=== PATIENT | female | born 1945 | race Caucasian/White ===

== ENCOUNTER 2017-01-05 11:34 | Inpatient (IN) | payer OTHER ==
[~2017-01-05] VITALS: Ht 162.6 cm; Wt 99.8 kg
[2017-01-05] MEDS ORDERED: IV NORMAL SALINE 1000ML BAG 1,000 ML IV SCH (12:12)
[2017-01-05] MEDS ORDERED: 0.9 % SODIUM CHLORIDE 10 ML DISP.SYRIN. IV ONE (12:15)
[2017-01-05] MEDS ORDERED: IPRATRPIUM/ALBUTEROL 0.5/2.5MG 3 ML NEBU. NEB ONE (12:15)
[2017-01-05] MEDS ORDERED: fentaNYL PF VIAL 100 MCG/2 ML VIAL IV PRN ×2 (12:15→16:00)
[2017-01-05] MEDS ORDERED: methylPREDNISolone SOD SUCC PF 125 MG/2 ML VIAL. IV ONE (12:15)
--- NOTE | 2017-01-05 12:23 | PHYS DOC ---
Past Medical History Past Medical History: COPD, High Cholesterol, Hypertension Additional Past Medical Histor: S2 colitis Past Surgical History: Cholecystectomy Additional Past Surgical Histo: prior oophorectomy secondary to ovarian cysts Smoking: Cigarettes, Greater than 1 pack/day Alcohol Use: None Drug Use: None Adult General Chief Complaint Chief Complaint: ALTERED MENTAL STATUS HPI HPI This is a pleasant 71-year-old female endstage COPD with history of hypertension hyperlipidemia who presents with altered mental status ongoing for last 3 days. at the bedside is noted that she had increased altered mental status with confusion periodically during the last several days and this morning he had a hard time arousing her from sleep. She denies any changes in the medications, denies that she's had any chest pain or increased need for her oxygen daily. Her present oxygen uses between 5 and 6 L daily depending on activity and sleep. She does not use a CPAP machine of our BiPAP and she still smoking. She denies any chest pain but has continuous shortness of breath with even minor activity. She denies any fevers, productive cough, runny nose congestion or other symptoms. She does have some crampy abdominal pain in all abdominal case. She denies any nausea, vomiting, diarrhea or UTI symptoms. Pain is worse with direct pressure not associate with food or position. Patient denies any radiation of pain to the back. Patient denies any fevers sick contacts or recent antibiotics. At this point patient is awake and talkative but several fairly confused even during history taking. She denies any weight gain denies any rashes. Review of Systems Review of Systems Constitutional: Complains of fatigue and increased sleepiness Eyes: Denies change in visual acuity, redness, or eye pain [] HENT: Denies nasal congestion or sore throat [] Respiratory: As on a nonproductive cough, also chronic shortness of breath on exertion.] Cardiovascular: No additional information not addressed in HPI [] GI: Planes of diffuse abdominal pain with no nausea no vomiting or diarrhea. : Denies dysuria or hematuria [] Musculoskeletal: Denies back pain or joint pain [] Integument: Denies rash or skin lesions [] Neurologic: Planes being generally weak and confused. Patient is awake alert and oriented [address] Endocrine: Denies polyuria or polydipsia [] Current Medications Current Medications Current Medications Medications (Trade) Dose Ordered Sig/Kevin Start Time Stop Time Status Last Admin Dose Admin Albuterol/ Ipratropium (Duoneb) 3 ml 1X ONCE 01/05/17 12:15 01/05/17 12:19 DC 01/05/17 13:09 3 ML Fentanyl Citrate (Fentanyl 2ml Vial) 50 mcg PRN Q2HR PRN 01/05/17 16:00 01/06/17 15:59 Levofloxacin/ Dextrose 150 ml @ 100 mls/hr 1X ONCE 01/05/17 16:00 01/05/17 17:29 Methylprednisolone Sodium Succinate (SOLU-Medrol 125MG VIAL) 125 mg 1X ONCE 01/05/17 12:15 01/05/17 12:19 DC 01/05/17 13:10 125 MG Ondansetron HCl (Zofran) 4 mg PRN Q8HRS PRN 01/05/17 16:00 01/06/17 15:59 Sodium Chloride 1,000 ml @ 1,000 mls/hr Q1H 01/05/17 12:12 01/05/17 13:11 DC 01/05/17 13:10 1,000 MLS/HR Sodium Chloride (Normal Saline Flush) 10 ml 1X ONCE 01/05/17 12:15 01/05/17 12:19 DC 01/05/17 13:10 10 ML Allergies Allergies Allergies Coded Allergies Type Severity Reaction Last Updated Verified No Known Drug Allergies 01/05/17 No Physical Exam Physical Exam Constitutional: This is a morbidly obese patient was obvious and respiratory distress speaking 5-6 word sentences no obvious retractions. Patient has dry skin dry mucous membranes and obviously is dehydrated. HENT: Normocephalic, atraumatic, bilateral external ears normal, dry mucous membranes Eyes: PERRLA, EOMI, conjunctiva normal, no discharge. [] Neck: Normal range of motion, no tenderness, supple, no stridor. [] Cardiovascular:Heart rate regular rhythm, no murmur [] Lungs & Thorax: Decreased breath sounds bilaterally decreased movement of air diffuse wheezing in all lung case with no retractions. Abdomen: Bowel sounds normal, soft, patient is tenderness in all the quadrants. No guarding rebound or organomegaly no Peralta's or McBurney's point tenderness palpation Skin: Warm, dry, no erythema, dry skin +2 capillary refill +2 peripheral pulses skin is warm and dry Back: No tenderness, no CVA tenderness. [] Extremities: No tenderness, no cyanosis, no clubbing, ROM intact, no edema. [] Neurologic: Alert and oriented X 2, normal motor function, normal sensory function, no focal deficits noted. Patient is mildly confused but easily focused. [] Psychologic: Affect normal, judgement normal, mood normal. [] Current Patient Data Vital Signs Vital Signs Date Time Temp Pulse Resp B/P (MAP) Pulse Ox O2 Delivery O2 Flow Rate FiO2 01/05/17 14:10 78 20 178/84 (115) 98 Nasal Cannula 6.0 01/05/17 11:50 98.4 98.4 Lab Values Laboratory Tests Test 01/05/17 11:50 01/05/17 12:55 01/05/17 13:39 01/05/17 15:10 White Blood Count 12.8 x10^3/uL (4.0-11.0) H Red Blood Count 3.58 x10^6/uL (3.50-5.40) Hemoglobin 11.2 g/dL (12.0-15.5) L Hematocrit 36.4 % (36.0-47.0) Mean Corpuscular Volume 102 fL (79-100) H Mean Corpuscular Hemoglobin 31 pg (25-35) Mean Corpuscular Hemoglobin Concent 31 g/dL (31-37) Red Cell Distribution Width 13.9 % (11.5-14.5) Platelet Count 199 x10^3/uL (140-400) Neutrophils (%) (Auto) 95 % (31-73) H Lymphocytes (%) (Auto) 3 % (24-48) L Monocytes (%) (Auto) 2 % (0-9) Eosinophils (%) (Auto) 0 % (0-3) Basophils (%) (Auto) 0 % (0-3) Neutrophils # (Auto) 12.1 x10^3uL (1.8-7.7) H Lymphocytes # (Auto) 0.4 x10^3/uL (1.0-4.8) L Monocytes # (Auto) 0.3 x10^3/uL (0.0-1.1) Eosinophils # (Auto) 0.0 x10^3/uL (0.0-0.7) Basophils # (Auto) 0.0 x10^3/uL (0.0-0.2) Segmented Neutrophils % 91 % (35-66) H Band Neutrophils % 4 % (0-9) Lymphocytes % 2 % (24-48) L Monocytes % 3 % (0-10) Platelet Estimate Adequate (ADEQUATE) Polychromasia Slight Basophilic Stippling Present Macrocytosis Slight Lactic Acid Level 0.9 mmol/L (0.4-2.0) Sodium Level 146 mmol/L (136-145) H Potassium Level 5.0 mmol/L (3.5-5.1) Chloride Level 110 mmol/L (98-107) H Carbon Dioxide Level 35 mmol/L (21-32) H Anion Gap 1 (6-14) L Blood Urea Nitrogen 27 mg/dL (7-20) H Creatinine 1.3 mg/dL (0.6-1.0) H Estimated GFR (Cockcroft-Gault) 40.5 BUN/Creatinine Ratio 21 (6-20) H Glucose Level 146 mg/dL (70-99) H Calcium Level 8.5 mg/dL (8.5-10.1) Total Bilirubin 0.2 mg/dL (0.2-1.0) Aspartate Amino Transferase (AST) 11 U/L (15-37) L Alanine Aminotransferase (ALT) 15 U/L (14-59) Alkaline Phosphatase 98 U/L (46-116) Creatine Kinase 24 U/L (26-192) L Creatine Kinase MB (Mass) 0.6 ng/mL (0.0-3.6) Creatine Kinase MB Relative Index % (0-4) Troponin I Quantitative < 0.017 ng/mL (0.000-0.055) RJ-Wqc-V-Type Natriuretic Peptide 812 pg/mL (0-124) H Total Protein 6.2 g/dL (6.4-8.2) L Albumin 3.1 g/dL (3.4-5.0) L Albumin/Globulin Ratio 1.0 (1.0-1.7) Lipase 79 U/L (73-393) Urine Collection Type U cath Urine Color Yellow Urine Clarity Cloudy Urine pH 6.0 Urine Specific [place] 1.015 Urine Protein 30 mg/dL (NEG-TRACE) Urine Glucose (UA) Negative mg/dL (NEG) Urine Ketones (Stick) Negative mg/dL (NEG) Urine Blood Large (NEG) Urine Nitrite Positive (NEG) Urine Bilirubin Negative (NEG) Urine Urobilinogen Dipstick 0.2 mg/dL (0.2 mg/dL) Urine Leukocyte Esterase Small (NEG) Urine RBC >40 /HPF (0-2) Urine WBC 11-20 /HPF (0-4) Urine Bacteria Many /HPF (0-FEW) O2 Saturation 95 % (92-99) Arterial Blood pH 7.21 (7.35-7.45) L Arterial Blood pCO2 at Patient Temp 77 mmHg (35-46) *H Arterial Blood pO2 at Patient Temp 84 mmHg (65-108) Arterial Blood HCO3 30 mmol/L (21-28) H Arterial Blood Base Excess 0 mmol/L (-3-3) Oxyhemoglobin 93.8 % Methemoglobin 0.5 % (0.0-1.9) Carbon Monoxide, Quantitative 1.0 % (0.0-1.9) FiO2 44.0 Laboratory Tests 01/05/17 11:50 Laboratory Tests 01/05/17 12:55 EKG EKG [] Radiology/Procedures Radiology/Procedures [] IMAGING REPORT Signed PATIENT: ARDEN SMITH ACCOUNT: [id number] : 1945 LOCATION: ER AGE: 71 SEX: F EXAM STATUS: REG ER ORD. PHYSICIAN: MINE RICE MD REASON: ab pain diffuse PROCEDURE: CT ABDOMEN PELVIS WO CONTRAST Indication diffuse abdominal pain. Axial images through the abdomen and pelvis were obtained. No similar imaging is available for comparison purposes. The study is limited. No IV or gastrointestinal contrast was administered. The lung bases are clear. Liver and spleen appear unremarkable. Clips are noted in the gallbladder fossa. No pancreatic abnormality is seen. There is a left adrenal nodule measuring approximately 1.5 cm in greatest dimension. Hounsfield unit numbers are -10. The finding is compatible with a benign adenoma. The right adrenal gland appears normal. No definite finding is seen associated with the kidneys. Some mild stranding is noted surrounding both kidneys which is nonspecific. Acute finding in the abdomen is not seen. In the pelvis diverticula are seen scattered throughout the large bowel. These are most numerous in the sigmoid colon. Active inflammation is not seen. Acute finding in the pelvis is not apparent. IMPRESSION: No acute finding seen in the abdomen or pelvis. Benign small left adrenal adenoma Moderately large bowel diverticulosis. PQRS Compliance Statement: One or more of the following individualized dose reduction techniques were utilized for this examination: 1. Automated exposure control 2. Adjustment of the mA and/or kV according to patient size 3. Use of iterative reconstruction technique DICTATED and SIGNED BY: ANITA HENDRICKS MD DATE: 01/05/17 1318 CC: MINE RICE MD; RAINA SIMPSON Jr, MD ~ IMAGING REPORT Signed PATIENT: ARDEN SMITH ACCOUNT: [id number] : 1945 LOCATION: ER AGE: 71 SEX: F EXAM STATUS: REG ER ORD. PHYSICIAN: MINE RICE MD REASON: cough sob PROCEDURE: PORTABLE CHEST 1V Exam: AP portable chest. History: Cough and shortness of breath beginning today. Comparison: 07/20/2012. Findings: The heart and mediastinal structures are within normal limits for size. Lungs are without infiltrate. No pneumothorax or pleural effusion is appreciated. There is mild accentuation of interstitial markings which could represent fibrotic change. Bilateral shoulder degeneration is seen. Impression: 1. No acute cardiopulmonary process. DICTATED and SIGNED BY: KE LOPEZ MD DATE: 01/05/17 1229 CC: MINE RICE MD; RAINA SIMPSON Jr, MD ~ IMAGING REPORT Signed PATIENT: ARDEN SMITH ACCOUNT: [id number] : 1945 LOCATION: ER AGE: 71 SEX: F EXAM STATUS: REG ER ORD. PHYSICIAN: MINE RICE MD REASON: ams confusion PROCEDURE: CT HEAD WO CONTRAST CT head without contrast History: Altered mental status, confusion. Comparison: None. Procedure: Axial images are obtained of the head from the skull base through the vertex without IV contrast. One or more of the following individualized dose reduction techniques were utilized for the study: Automated exposure control Adjustment of mA and/or kV according to patient's size Use of iterative reconstruction technique. Findings: The ventricles and sulci are normal for the patient's age. No mass-effect, intracranial mass, midline shift, hemorrhage or obvious acute infarction is identified. Basilar cisterns are patent. Patchy, nonspecific white matter low attenuation is seen, probably from chronic microvascular ischemic disease. Bone windows demonstrate no significant calvarial abnormality. The visualized paranasal sinuses appear clear. Impression: 1. No acute intracranial process. Please note that CT can be relatively insensitive to acute ischemic infarction for up to 24 hours after symptom onset. 2. Nonspecific white matter changes, probably from chronic microvascular ischemic disease. DICTATED and SIGNED BY: KE LOPEZ MD DATE: 01/05/17 6257 CC: MINE RICE MD; RAINA SIMPSON Jr, MD ~ Course & Med Decision Making Course & Med Decision Making Pertinent Labs and Imaging studies reviewed. (See chart for details) Patient initially presented with altered mental status for last 3-4 days according to the family they were concerned about possible infection versus stroke. Her drug scale work shows essentially 0 at baseline noted that she was in mild COPD exacerbation with decreased breath sounds rock at the bases without a focal cranial chest x-ray. Patient was given Solu-Medrol 125 mg IV as well as no treatment was 3 doses albuterol and Atrovent of Levaquin antibiotics after blood cultures were completed. Patient was then completed the cardiac workup to include EKG and troponin which are both unremarkable. Patient's CT abdomen and pelvis was unremarkable for appendicitis diverticulitis or small bowel inflammation or infection. Although she had a complaint of abdominal pain there is no evidence of kidney stones or small bowel obstruction. urinalysis that was trace white blood cells nitrates and bacteria consistent with a likely bacterial infection of the urine. Patient's CT of her head was unremarkable except for mild atrophy without focal neurologic neurologic infarct or mass. At this point patient feels markedly better but almost os is not been explained. She'll be admitted to the hospital for Altered mental status, COPD exacerbation, mild hypoxia and a urinary tract infection.. Patient's been admitted to hospitalist service to [facility] []Differential diagnosis: Acute myocardial ischemia, heart failure, cardiac tamponade, bronchospasm, pulmonary embolism, pneumothorax, pulmonary infection i.e. bronchitis or pneumonia, upper airway obstruction, anaphylaxis, aspiration , psychogenic, pulmonary contusion, toxidrome, pneumomediastinum, noncardiogenic pulmonary edema or ARDS, COPD, tuberculosis, cystic fibrosis, asthma, high altitude pulmonary edema, valvular dysfunction, cardiac dysrhythmia , stroke, neuromuscular diseases like myasthenia gravis gravis, ALS, Guillain- Horn syndrome, metabolic acidosis to include diabetic ketoacidosis, sepsis, and obstructive disorders like massive obesity considers part of the differential. Dragon Disclaimer Dragon Disclaimer This electronic medical record was generated, in whole or in part, using a voice recognition dictation system. Departure Departure Impression: Primary Impression: Dyspnea Additional Impressions: COPD exacerbation Mental status alteration Hypertension Urinary tract infection Disposition: 09 ADMITTED INPATIENT Admitting Physician: Trudy Huddleston Condition: GOOD Referrals: RAINA SIMPSON Jr, MD (PCP) Problem Qualifiers MINE RICE MD January 05, 2017 12:23
[2017-01-05 12:25] LABS: BASO % 0 % (0-3); EOS % 0 % (0-3); HEMATOCRIT 36.4 % (36.0-47.0); HEMOGLOBIN 11.2 g/dL (12.0-15.5); LYMPH # 0.4 x10^3/uL (1.0-4.8); LYMPH % 3 % (24-48); MEAN CORPUSCULAR HEMOGLOBIN 31 pg (25-35); MEAN CORPUSCULAR HGB CONC 31 g/dL (31-37); MEAN CORPUSCULAR VOLUME 102 fL (79-100); MONO % 2 % (0-9); NEUT % 95 % (31-73); PLATELET COUNT 199 x10^3/uL (140-400); RED BLOOD COUNT 3.58 x10^6/uL (3.50-5.40); RED CELL DISTRIBUTION WIDTH 13.9 % (11.5-14.5); WHITE BLOOD COUNT 12.8 x10^3/uL (4.0-11.0)
--- NOTE | 2017-01-05 12:33 | RAD ---
Exam: AP portable chest. History: Cough and shortness of breath beginning today. Comparison: 07/20/2012. Findings: The heart and mediastinal structures are within normal limits for size. Lungs are without infiltrate. No pneumothorax or pleural effusion is appreciated. There is mild accentuation of interstitial markings which could represent fibrotic change. Bilateral shoulder degeneration is seen. Impression: 1. No acute cardiopulmonary process.
[2017-01-05 13:20] LABS: ALBUMIN 3.1 g/dL (3.4-5.0); CALCIUM 8.5 mg/dL (8.5-10.1); CREATININE 1.3 mg/dL (0.6-1.0); GFR 40.5; TOTAL BILIRUBIN 0.2 mg/dL (0.2-1.0); TOTAL PROTEIN 6.2 g/dL (6.4-8.2)
[2017-01-05 13:31] LABS: CKMB MASS 0.6 ng/mL (0.0-3.6); CREATINE KINASE 24 U/L (26-192)
--- NOTE | 2017-01-05 13:32 | RAD ---
Indication diffuse abdominal pain. Axial images through the abdomen and pelvis were obtained. No similar imaging is available for comparison purposes. The study is limited. No IV or gastrointestinal contrast was administered. The lung bases are clear. Liver and spleen appear unremarkable. Clips are noted in the gallbladder fossa. No pancreatic abnormality is seen. There is a left adrenal nodule measuring approximately 1.5 cm in greatest dimension. Hounsfield unit numbers are -10. The finding is compatible with a benign adenoma. The right adrenal gland appears normal. No definite finding is seen associated with the kidneys. Some mild stranding is noted surrounding both kidneys which is nonspecific. Acute finding in the abdomen is not seen. In the pelvis diverticula are seen scattered throughout the large bowel. These are most numerous in the sigmoid colon. Active inflammation is not seen. Acute finding in the pelvis is not apparent. IMPRESSION: No acute finding seen in the abdomen or pelvis. Benign small left adrenal adenoma Moderately large bowel diverticulosis. PQRS Compliance Statement: One or more of the following individualized dose reduction techniques were utilized for this examination: 1. Automated exposure control 2. Adjustment of the mA and/or kV according to patient size 3. Use of iterative reconstruction technique
[2017-01-05 13:49] LABS: BILIRUBIN,URINE NEGATIVE (NEG); GLUCOSE,URINE NEGATIVE (NEG); NITRITE,URINE POSITIVE (NEG); PROTEIN,URINE 30 mg/dL (NEG-TRACE); UROBILINOGEN,URINE 0.2 mg/dL (0.2 mg/dL)
--- NOTE | 2017-01-05 13:55 | EKG ---
[facility] [address] [place] [address] Test Date: 2017-01-05 Test Time: 11:44:12 Pat Name: ARDEN SMITH Department: Room: Gender: F [employer]: : 1945 Requested By: MINE RICE Order Number: [id number] Reading MD: Rodolfo Elizabeth Measurements Intervals [place] Rate: 78 P: 90 IA: 154 QRS: 95 QRSD: 86 T: 72 QT: 350 QTc: 402 Interpretive Statements SINUS RHYTHM ATRIAL PREMATURE COMPLEX(ES) Electronically Signed On 01-09-2017 12:48:49 CDT by Rodolfo Elizabeth
[2017-01-05 13:59] LABS: BACTERIA,URINE MANY /HPF (0-FEW); RBC,URINE >40 /HPF (0-2)
--- NOTE | 2017-01-05 14:35 | ACF ---
Admit Criteria Forms Admit Criteria Forms Admit Criteria Forms MENTAL STATUS CHANGE Clinical Indications for Inpatient Care (Place 'X' for any and all applicable criteria): Ongoing inpatient care may be needed for 1 or more of the following(1)(2)(3)(5)( 6): [ ]I. Suspected serious etiology (eg, medical disorder, MICROBIOLOGY LAB ASSISTANT event) of altered mental status [ ]II. Danger to self or others not manageable at lower level of care [ ]III. Grave disability (eg, inability to perform self care necessary at lower level of care) [ ]IV. Agitation or inappropriate behavior interfering with care for primary condition (eg, attempting to discontinue lines or drains prematurely, unable to cooperate with respiratory care) [ ]V. Delirium [A] [D][E] as described by 1 or more of the following(26): [ ]a) Delirium due to alcohol or sedative [F] withdrawal [ ]b) Delirium of uncertain etiology that has not responded to appropriate empiric treatment [ ]c) Delirium that prevents performance of a life-sustaining function (eg, feeding or hydrating oneself) [X]. General contraindications and/or Inappropriate clinical situations for Observational Care in patients with Mental Status Change, when ANY ONE of the following is required: [X]a) Prediction of prolongation of LOS based on ANY ONE of the following may be considered as a contraindication for observational care 2, 3, 4, 5, 6, 7, 8, 9, 10, 11 [X]i) Age > 65 yrs. [X]ii) Patient arriving by ambulance [ ]iii) Patient with high acuity [ ]iv) Patient requiring vital sign monitoring [ ]v) Patient on IV medication [ ]b) Systolic blood pressures greater than or equal to 180mmHg 3, 12 [ ]c) Patient with altered mental status including delirium and other alteration of consciousness, (3) [ ]d) Patient whose discharge disposition will be to a penitentiary home or rehabilitation home should not be managed in Emergency Department Observation Unit. CMS rule requires 3 days hospital stay before such placement.3,13 [ ]e) Patient with failure to thrive due to broad array of etiologies 3,16,17 [ ]f) Inability to ambulate 3,14 Extended stay beyond goal length of stay for the primary condition may be needed until ALL of the following are present(3)(5): [ ]a) Underlying medical etiology of mental status change is absent, or has been established and adequately treated [ ]b) Danger to self or others is absent or manageable at lower level of care. [ ]c) Behavior crisis management, including physical or chemical restraints, is not required or available at lower level of car [ ]d) Substance or alcohol withdrawal is absent or manageable at lower level of care. [ ]e) Behavioral symptoms (eg, agitation, somnolence, inappropriate behavior) are absent, or are manageable at lower level of care. The original [facility] Eventable content created by [facility] has been revised. The portions of the content which have been revised are identified through the use of italic text or in bold, and [facility] has neither reviewed nor approved the modified material. All other unmodified content is copyright [facility]. Please see references footnoted in the original [facility] [employer] edition 2016 MYRIAM ONEIL January 05, 2017 14:35
[2017-01-05 14:59] LABS: PLT ESTIMATE ADEQUATE (ADEQUATE)
[2017-01-05 15:01] LABS: POLYCHROMASIA SLIGHT
--- NOTE | 2017-01-05 15:01 | RAD ---
CT head without contrast History: Altered mental status, confusion. Comparison: None. Procedure: Axial images are obtained of the head from the skull base through the vertex without IV contrast. One or more of the following individualized dose reduction techniques were utilized for the study: Automated exposure control Adjustment of mA and/or kV according to patient's size Use of iterative reconstruction technique. Findings: The ventricles and sulci are normal for the patient's age. No mass-effect, intracranial mass, midline shift, hemorrhage or obvious acute infarction is identified. Basilar cisterns are patent. Patchy, nonspecific white matter low attenuation is seen, probably from chronic microvascular ischemic disease. Bone windows demonstrate no significant calvarial abnormality. The visualized paranasal sinuses appear clear. Impression: 1. No acute intracranial process. Please note that CT can be relatively insensitive to acute ischemic infarction for up to 24 hours after symptom onset. 2. Nonspecific white matter changes, probably from chronic microvascular ischemic disease.
[2017-01-05 15:15] LABS: BASE EXCESS COOX 0 mmol/L (-3-3); HCO3 COOX 30 mmol/L (21-28); METHEMOGLOBIN 0.5 % (0.0-1.9); OXYHEMOGLOBIN 93.8 %; PH COOX 7.21 (7.35-7.45); PO2 COOX 84 mmHg (65-108); SAT O2 COOX 95 % (92-99); TOTAL HEMOGLOBIN 11.9 g/dL
[2017-01-05 15:18] LABS: PCO2 COOX 77 mmHg (35-46)
[2017-01-05] MEDS ORDERED: ONDANSETRON PF 4 MG/2 ML VIAL. IV PRN ×2 (16:00→17:24)
[2017-01-05] MEDS ORDERED: LABETALOL 20 MG/4 ML DISP.SYRIN. IVP PRN (17:30)
[2017-01-05] MEDS ORDERED: ACETAMINOPHEN 500 MG TABLET PO PRN (17:30)
--- NOTE | 2017-01-05 17:34 | PDOC1 ---
History and Physical Date of Admission Date of Admission DATE: 01/05/17 TIME: 17:27 Identification/Chief Complaint Chief Complaint confusion Problems: Source Source: Caregiver, Chart review History of Present Illness History of Present Illness 71 y.o female COPD on 6 LNC at day time and 3L NC at night, brought by concerned and son bec of acute confusion "she couldnt wake up" happened today. LAbs ok, except for ABg that shows pH 7.2, CO2 77 and O2 ok at 44% fIO2 which was initiated by ER. NOw fully conscious, I have seen at ER, CXr ok, CT head small vessel dse, CTA abd /pelvis, some diverticulosis, benign left adrenal adenoma. LAbs Mild hypernat 146, trops neg, GFR 40s, Crea 1,3, WBC 12, on chronic pred at home Follows with a pulmo from [facility] (Moody Chaudhary) PCP Dr. Jaylen Ivey SMOker 5 -6 ciggs a day Family claims some coughing, no recent travels, no sick contacts, no fevers at home Past Medical History Pulmonary: Bronchitis, COPD CENTRAL NERVOUS SYSTEM: Dementia GI: Constipation Heme/Onc: No pertinent hx Hepatobiliary: No pertinent hx Past Surgical History Past Surgical History: No pertinent history Family History Family History: Hypertension Social History Smoke: <1 pack per day ALCOHOL: none Drugs: None Current Problem List Problem List Problems Medical Problems: (1) COPD exacerbation Status: Acute (2) Dyspnea Status: Acute (3) Hypertension Status: Acute (4) Mental status alteration Status: Acute Problems: Current Medications Current Medications Current Medications Sodium Chloride (Normal Saline Flush) 10 ml 1X ONCE IV Last administered on 13:10; Start 01/05/17 at 12:15; Stop 01/05/17 at 12:19; Status DC Sodium Chloride 1,000 ml @ 1,000 mls/hr Q1H IV Last administered on 01/05/17 13:10; Start 01/05/17 at 12:12; Stop 01/05/17 at 13:11; Status DC Albuterol/ Ipratropium (Duoneb) 3 ml 1X ONCE NEB Last administered on 13:09; Start 01/05/17 at 12:15; Stop 01/05/17 at 12:19; Status DC Methylprednisolone Sodium Succinate (SOLU-Medrol 125MG VIAL) 125 mg 1X ONCE IV Last administered on 01/05/17 13:10; Start 01/05/17 at 12:15; Stop 01/05/17 at 12:19; Status DC Fentanyl Citrate (Fentanyl 2ml Vial) 25 mcg PRN Q15MIN PRN IV PAIN GREATER THAN 3/10 Last administered on 01/05/17 13:10; Start 01/05/17 at 12:15; Stop at 12:14 Ondansetron HCl (Zofran) 4 mg PRN Q8HRS PRN IV NAUSEA/VOMITING; Start 01/05/17 at 16:00; Stop 01/06/17 at 15:59 Fentanyl Citrate (Fentanyl 2ml Vial) 50 mcg PRN Q2HR PRN IV PAIN; Start at 16:00; Stop 01/06/17 at 15:59 Levofloxacin/ Dextrose 150 ml @ 100 mls/hr 1X ONCE IV Last administered on 16:44; Start 01/05/17 at 16:00; Stop 01/05/17 at 17:29 Allergies Allergies: Coded Allergies: No Known Drug Allergies (Unverified , 01/05/17) ROS General: No: Chills, Night Sweats, Fatigue, Malaise, Appetite, Other PSYCHOLOGICAL ROS: No: Anxiety, Behavioral Disorder, Concentration difficultie , Decreased libido, Depression, Disorientation, Hallucinations, Hostility, Irritablity, Memory difficulties, Mood Swings, Obsessive thoughts, Physical abuse, Sexual abuse, Sleep disturbances, Suicidal ideation, Other Eyes: No Blurry vision, No Decreased vision, No Double vision, No Dry eyes, No Excessive tearing, No Eye Pain, No Itchy Eyes, No Loss of vision, No Photophobia , No Scotomata, No Uses contacts, No Uses glasses, No Other HEENT: No: Heacaches, Visual Changes, Hearing change, Nasal congestion, Nasal discharge, Oral lesions, Sinus pain, Sore Throat, Epistaxis, Sneezing, Snoring, Tinnitus, Vertigo, Vocal changes, Other ALLERGY AND IMMUNOLOGY: No: Hives, Insect Bite Sensitivity, Itchy/Watery Eyes, Nasal Congestion, Post Nasal Drip, Seasonal Allergies, Other Hematological and Lymphatic: No: Bleeding Problems, Blood Clots, Blood Transfusions, Brusing, Night Sweats, Pallor, Swollen Lymph Nodes, Other ENDOCRINE: No: Breast Changes, Galactorrhea, Hair Pattern Changes, Hot Flashes , Malaise/lethargy, Mood Swings, Palpitations, Polydipsia/polyuria, Skin Changes , Temperature Intolerance, Unexpected Weight Changes, Other Breast: No New/Changing Breast Lumps, No Nipple changes, No Nipple discharge, No Other Respiratory: YES: Cough Cardiovascular: No Chest Pain, No Palpitations, No Orthopnea, No Paroxysmal Noc. Dyspnea, No Edema, No Lt Headedness, No Other Gastrointestinal: No Nausea, No Vomiting, No Abdominal Pain, No Diarrhea, No Constipation, No Melena, No Hematochezia, No Other Genitourinary: No Dysuria, No Frequency, No Incontinence, No Hematuria, No Retention, No Discharge, No Urgency, No Pain, No Flank Pain, No Other, No , No , No , No , No , No , No Musculoskeletal: No Gait Disturbance, No Joint Pain, No Joint Stiffness, No Joint Swelling, No Muscle Pain, No Muscular Weakness, No Pain In:, No Swelling In:, No Other Neurological: Yes Confusion Skin: No Dry Skin, No Eczema, No Hair Changes, No Lumps, No Mole Changes, No Mottling, No Nail Changes, No Pruritus, No Rash, No Skin Lesion Changes, No Other, No Acne Physical Exam General: Alert, Cooperative, No acute distress HEENT: Atraumatic Lungs: Normal air movement, Other (mild to mod wheezing) Heart: S1S2, RRR, no thrills, no rubs Breasts: Normal, Rt breast nml w/o mass, Lt breast nml w/o mass, Nipples normal Abdomen: Normal bowel sounds, Soft, No tenderness, No hepatosplenomegaly, No masses Rectal Exam: not examined PELVIC: Nml ext genitalia Extremities: No clubbing, No cyanosis, No edema, Normal pulses, No tenderness/ swelling Skin: No rashes, No breakdown, No significant lesion Neuro: Normal gait, Normal speech, Strength at 5/5 X4 ext, Normal tone, Sensation intact, Cranial nerves 3-12 NL, Reflexes 2+ Psych/Mental Status: Mental status NL, Mood NL Vitals Vitals Vital Signs Date Time Temp Pulse Resp B/P (MAP) Pulse Ox O2 Delivery O2 Flow Rate FiO2 01/05/17 14:10 78 20 178/84 (115) 98 Nasal Cannula 6.0 01/05/17 11:50 98.4 98.4 Labs Labs Laboratory Tests Test 01/05/17 11:50 01/05/17 12:55 01/05/17 13:39 01/05/17 15:10 White Blood Count 12.8 x10^3/uL (4.0-11.0) Red Blood Count 3.58 x10^6/uL (3.50-5.40) Hemoglobin 11.2 g/dL (12.0-15.5) Hematocrit 36.4 % (36.0-47.0) Mean Corpuscular Volume 102 fL (79-100) Mean Corpuscular Hemoglobin 31 pg (25-35) Mean Corpuscular Hemoglobin Concent 31 g/dL (31-37) Red Cell Distribution Width 13.9 % (11.5-14.5) Platelet Count 199 x10^3/uL (140-400) Neutrophils (%) (Auto) 95 % (31-73) Lymphocytes (%) (Auto) 3 % (24-48) Monocytes (%) (Auto) 2 % (0-9) Eosinophils (%) (Auto) 0 % (0-3) Basophils (%) (Auto) 0 % (0-3) Neutrophils # (Auto) 12.1 x10^3uL (1.8-7.7) Lymphocytes # (Auto) 0.4 x10^3/uL (1.0-4.8) Monocytes # (Auto) 0.3 x10^3/uL (0.0-1.1) Eosinophils # (Auto) 0.0 x10^3/uL (0.0-0.7) Basophils # (Auto) 0.0 x10^3/uL (0.0-0.2) Segmented Neutrophils % 91 % (35-66) Band Neutrophils % 4 % (0-9) Lymphocytes % 2 % (24-48) Monocytes % 3 % (0-10) Platelet Estimate Adequate (ADEQUATE) Polychromasia Slight Basophilic Stippling Present Macrocytosis Slight Lactic Acid Level 0.9 mmol/L (0.4-2.0) Sodium Level 146 mmol/L (136-145) Potassium Level 5.0 mmol/L (3.5-5.1) Chloride Level 110 mmol/L (98-107) Carbon Dioxide Level 35 mmol/L (21-32) Anion Gap 1 (6-14) Blood Urea Nitrogen 27 mg/dL (7-20) Creatinine 1.3 mg/dL (0.6-1.0) Estimated GFR (Cockcroft-Gault) 40.5 BUN/Creatinine Ratio 21 (6-20) Glucose Level 146 mg/dL (70-99) Calcium Level 8.5 mg/dL (8.5-10.1) Total Bilirubin 0.2 mg/dL (0.2-1.0) Aspartate Amino Transf (AST/SGOT) 11 U/L (15-37) Alanine Aminotransferase (ALT/SGPT) 15 U/L (14-59) Alkaline Phosphatase 98 U/L (46-116) Creatine Kinase 24 U/L (26-192) Creatine Kinase MB (Mass) 0.6 ng/mL (0.0-3.6) Creatine Kinase MB Relative Index % (0-4) Troponin I Quantitative < 0.017 ng/mL (0.000-0.055) XF-Xyq-W-Type Natriuretic Peptide 812 pg/mL (0-124) Total Protein 6.2 g/dL (6.4-8.2) Albumin 3.1 g/dL (3.4-5.0) Albumin/Globulin Ratio 1.0 (1.0-1.7) Lipase 79 U/L (73-393) Urine Collection Type U cath Urine Color Yellow Urine Clarity Cloudy Urine pH 6.0 Urine Specific Dillon 1.015 Urine Protein 30 mg/dL (NEG-TRACE) Urine Glucose (UA) Negative mg/dL (NEG) Urine Ketones (Stick) Negative mg/dL (NEG) Urine Blood Large (NEG) Urine Nitrite Positive (NEG) Urine Bilirubin Negative (NEG) Urine Urobilinogen Dipstick 0.2 mg/dL (0.2 mg/dL) Urine Leukocyte Esterase Small (NEG) Urine RBC >40 /HPF (0-2) Urine WBC 11-20 /HPF (0-4) Urine Bacteria Many /HPF (0-FEW) O2 Saturation 95 % (92-99) Arterial Blood pH 7.21 (7.35-7.45) Arterial Blood pCO2 at Patient Temp 77 mmHg (35-46) Arterial Blood pO2 at Patient Temp 84 mmHg (65-108) Arterial Blood HCO3 30 mmol/L (21-28) Arterial Blood Base Excess 0 mmol/L (-3-3) Oxyhemoglobin 93.8 % Methemoglobin 0.5 % (0.0-1.9) Carbon Monoxide, Quantitative 1.0 % (0.0-1.9) FiO2 44.0 Laboratory Tests Test 01/05/17 11:50 01/05/17 12:55 01/05/17 13:39 01/05/17 15:10 White Blood Count 12.8 x10^3/uL (4.0-11.0) Red Blood Count 3.58 x10^6/uL (3.50-5.40) Hemoglobin 11.2 g/dL (12.0-15.5) Hematocrit 36.4 % (36.0-47.0) Mean Corpuscular Volume 102 fL (79-100) Mean Corpuscular Hemoglobin 31 pg (25-35) Mean Corpuscular Hemoglobin Concent 31 g/dL (31-37) Red Cell Distribution Width 13.9 % (11.5-14.5) Platelet Count 199 x10^3/uL (140-400) Neutrophils (%) (Auto) 95 % (31-73) Lymphocytes (%) (Auto) 3 % (24-48) Monocytes (%) (Auto) 2 % (0-9) Eosinophils (%) (Auto) 0 % (0-3) Basophils (%) (Auto) 0 % (0-3) Neutrophils # (Auto) 12.1 x10^3uL (1.8-7.7) Lymphocytes # (Auto) 0.4 x10^3/uL (1.0-4.8) Monocytes # (Auto) 0.3 x10^3/uL (0.0-1.1) Eosinophils # (Auto) 0.0 x10^3/uL (0.0-0.7) Basophils # (Auto) 0.0 x10^3/uL (0.0-0.2) Segmented Neutrophils % 91 % (35-66) Band Neutrophils % 4 % (0-9) Lymphocytes % 2 % (24-48) Monocytes % 3 % (0-10) Platelet Estimate Adequate (ADEQUATE) Polychromasia Slight Basophilic Stippling Present Macrocytosis Slight Lactic Acid Level 0.9 mmol/L (0.4-2.0) Sodium Level 146 mmol/L (136-145) Potassium Level 5.0 mmol/L (3.5-5.1) Chloride Level 110 mmol/L (98-107) Carbon Dioxide Level 35 mmol/L (21-32) Anion Gap 1 (6-14) Blood Urea Nitrogen 27 mg/dL (7-20) Creatinine 1.3 mg/dL (0.6-1.0) Estimated GFR (Cockcroft-Gault) 40.5 BUN/Creatinine Ratio 21 (6-20) Glucose Level 146 mg/dL (70-99) Calcium Level 8.5 mg/dL (8.5-10.1) Total Bilirubin 0.2 mg/dL (0.2-1.0) Aspartate Amino Transf (AST/SGOT) 11 U/L (15-37) Alanine Aminotransferase (ALT/SGPT) 15 U/L (14-59) Alkaline Phosphatase 98 U/L (46-116) Creatine Kinase 24 U/L (26-192) Creatine Kinase MB (Mass) 0.6 ng/mL (0.0-3.6) Creatine Kinase MB Relative Index % (0-4) Troponin I Quantitative < 0.017 ng/mL (0.000-0.055) KC-Ywd-Y-Type Natriuretic Peptide 812 pg/mL (0-124) Total Protein 6.2 g/dL (6.4-8.2) Albumin 3.1 g/dL (3.4-5.0) Albumin/Globulin Ratio 1.0 (1.0-1.7) Lipase 79 U/L (73-393) Urine Collection Type U cath Urine Color Yellow Urine Clarity Cloudy Urine pH 6.0 Urine Specific Dillon 1.015 Urine Protein 30 mg/dL (NEG-TRACE) Urine Glucose (UA) Negative mg/dL (NEG) Urine Ketones (Stick) Negative mg/dL (NEG) Urine Blood Large (NEG) Urine Nitrite Positive (NEG) Urine Bilirubin Negative (NEG) Urine Urobilinogen Dipstick 0.2 mg/dL (0.2 mg/dL) Urine Leukocyte Esterase Small (NEG) Urine RBC >40 /HPF (0-2) Urine WBC 11-20 /HPF (0-4) Urine Bacteria Many /HPF (0-FEW) O2 Saturation 95 % (92-99) Arterial Blood pH 7.21 (7.35-7.45) Arterial Blood pCO2 at Patient Temp 77 mmHg (35-46) Arterial Blood pO2 at Patient Temp 84 mmHg (65-108) Arterial Blood HCO3 30 mmol/L (21-28) Arterial Blood Base Excess 0 mmol/L (-3-3) Oxyhemoglobin 93.8 % Methemoglobin 0.5 % (0.0-1.9) Carbon Monoxide, Quantitative 1.0 % (0.0-1.9) FiO2 44.0 VTE Prophylaxis Ordered VTE Prophylaxis Devices: Yes VTE Pharmacological Prophylaxi: Yes Assessment/Plan Assessment/Plan 1. Acute hypercapneic respi failure needing NIPPV at ER, transiently 2. Acute encephalopathy sec to CO2 narcosis 3. Obesity, possible JOE 4. 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 AOCD 6. Leukocytosis on chronic prednisone 7. COPD exacerbation, severe 8. SMoker 9. SIRS POA 10. Mild PCM - albumin 3,.1 PLAn: Admit 2MN Pulmo consult Nebs cough med O2 support, BIPAP prn IF any confusion again, ABG and need for bipap DVT prophy [place] home meds Monitor FILOMENA (crea 1,3) Nutrition consult albumin 3.1 Nicotine patch prn dw family seen at ER ERICKSON BENAVIDES MD January 05, 2017 17:34
--- NOTE | 2017-01-05 17:47 | ACF ---
Admission Forms Criteria COPD Clinical Indications for Admission to Inpatient Care (Place 'X' for any and all applicable criteria): Admission is indicated for ANY ONE of the following (1)(2)(3): [X]I. Acute exacerbation by high-risk comorbidity (e.g., pneumonia, dysrhythmia, heart failure, pleural effusion, pneumothorax) or severe underlying COPD (e.g., steroid dependent) [ ]II. Inpatient admission required rather than observation care (see Chronic Obstructive Pulmonary Disease: Observation Care) because of ANY ONE of the following: [ ]a) New or pre-existing signs or symptoms of COPD (eg, dyspnea or Tachypnea at rest or with minimal activity) that persist despite outpatient and observation care treatment [ ]b) New-onset hypoxemia (room air SaO2 less than 90%, PO2 less than 60 mm Hg (8.0 kPa)) that persists despite outpatient and observation care treatment [ ]c) Worsening of pre-existing hypoxemia (eg, new or increased requirement for supplemental oxygen to maintain oxygenation at baseline level) that persists despite outpatient and observation care treatment, with oxygen treatment needs performable only in acute inpatient setting [ ]d) Hypercarbia (PCO2 greater than 40 mm Hg (5.3 kPa))-induced respiratory acidosis (pH less than 7.35) that persists despite outpatient and observation care treatment [ ]e) Supplemental oxygen or respiratory treatments for over 24 hours that are performable only in acute inpatient setting [ ]f) Chest tube placement with active evacuation (e.g., suction, drainage) (5) [ ]g) Other condition, treatment or monitoring requiring inpatient admission [ ]III. Planned invasive surgical or diagnostic procedures requiring acute- care hospitalization [ ]IV. Acute respiratory failure (e.g., uncompensated hypercarbia, severe hypoxemia) [ ]V. Severe comorbid condition (e.g., severe steroid myopathy, acute vertebral fracture) that has acutely worsened pulmonary function [ ]. Confusion state, lethargy, obtundation, stupor or coma Extended stay beyond goal length of stay may be needed for (31)(32): [ ]a ) Respiratory Failure. [ ]b) Severe or persisting hypoxemia or hypercarbia [ ]c) Severe or persistent dyspnea [ ]d) Comorbidities (e.g. chronic heart failure, atrial fibrillation with rapid response, pneumonia) [ ]e) Malnutrition The original [facility] content created by [facility] has been revised. The portions of the content which have been revised are identified through the use of italic text or in bold, and [facility] has neither reviewed nor approved the modified material. All other unmodified content is copyright [facility]. Please see references footnoted in the original [facility] edition 2016 Admission Criteria Met?: Yes MATTHEW MCLAUGHLIN January 05, 2017 17:47
[2017-01-05 19:05] VITALS: BP 117/64
[2017-01-05] MEDS: IPRATRPIUM/ALBUTEROL 0.5/2.5MG 3 ML NEBU. NEB SCH (19:23)
[2017-01-05 20:33] LABS: HCO3 ABG 28 mmol/L (21-28); PCO2 ABG 55 mmHg (35-46); PH ABG 7.32 (7.35-7.45); PO2 ABG 64 mmHg (65-108); SAT O2 ABG 93 % (92-99)
[2017-01-05] MEDS: BENZONATATE 100 MG CAPSULE. PO SCH (21:05)
[2017-01-05] MEDS: ENOXAPARIN 40 MG/0.4 ML SYRINGE. SQ SCH (21:05)
[2017-01-05 23:00] VITALS: BP 134/71
[2017-01-06 03:00] VITALS: BP 160/94
[2017-01-06] MEDS ORDERED: CITA20TA5 PO (04:27)
[2017-01-06] MEDS ORDERED: WARF5TAB7 PO ×2 (04:27)
[2017-01-06] MEDS ORDERED: WARF2TAB7 PO (04:27)
[2017-01-06] MEDS ORDERED: UMEC1DIS IH (04:27)
[2017-01-06] MEDS ORDERED: PROM12.56 PO (04:27)
[2017-01-06] MEDS ORDERED: LOSA100T6 PO (04:27)
[2017-01-06] MEDS ORDERED: PRAV40TA2 PO (04:27)
[2017-01-06] MEDS ORDERED: LISI40TA PO (04:27)
[2017-01-06] MEDS ORDERED: ACET325T9 PO (04:27)
[2017-01-06] MEDS ORDERED: AMLO5TAB2 PO (04:27)
[2017-01-06] MEDS ORDERED: PRED20TA PO (04:27)
[2017-01-06] MEDS ORDERED: KRIL1CAP23 PO (04:27)
[2017-01-06 07:22] VITALS: BP 156/79
[2017-01-06] MEDS: IPRATRPIUM/ALBUTEROL 0.5/2.5MG 3 ML NEBU. NEB SCH ×3 (08:00→19:57)
--- NOTE | 2017-01-06 08:39 | PDOC ---
Provider Note Provider Note dictated HERMELINDO HAHN MD Jan 06, 2017 08:39
[2017-01-06 08:41] LABS: HCO3 ABG 27 mmol/L (21-28); PCO2 ABG 47 mmHg (35-46); PH ABG 7.38 (7.35-7.45); PO2 ABG 62 mmHg (65-108); SAT O2 ABG 91 % (92-99)
[2017-01-06 08:45] LABS: FIO2 ABG 30
[2017-01-06] MEDS: BENZONATATE 100 MG CAPSULE. PO SCH ×3 (09:13→20:07)
--- NOTE | 2017-01-06 09:16 | CONS ---
DATE OF CONSULTATION: 01/06/2017 ATTENDING PHYSICIAN: Dr. Huddleston. REASON FOR CONSULTATION: Respiratory failure. HISTORY OF PRESENT ILLNESS: The patient is a 71-year-old morbidly obese patient with a BMI of 37.8. She has smoked for 40 years and continues to smoke cigarettes. She has underlying COPD. She has chronic respiratory failure and has been on home oxygen between 5-7 liters at home on a 24-hour basis. She was brought in to the hospital after she was noted to have increasing confusion. She had some mild shortness of breath. There was no cough, no fever, no chills, no chest pains, no leg edema. No history of deep vein thrombosis or pulmonary embolism. A CT of the head was performed, which showed small vessel disease. CT abdomen and pelvis showed some diverticulosis and benign left adrenal adenoma. Arterial blood gases revealed a pH of 7.21, pCO2 77 and a pO2 of 84 on 44% FiO2. At that time, I had recommended that the patient should be placed on a BiPAP. Subsequent blood gases showed a pH of 7.32, pCO2 of 55 and pO2 of 64 on 30% FiO2. The patient did stay on BiPAP all night. At present, she is fully awake. She does not appear to be in any obvious respiratory distress. Her was at the bedside and wants to take her home later today. Consultation requested for further evaluation and management. PAST MEDICAL HISTORY: Significant for history of chronic respiratory failure, on home oxygen between 5-7 liters, history of COPD, history of obesity hypoventilation syndrome and suspected JOE, history of dementia. PAST SURGICAL HISTORY: No recent surgeries. FAMILY HISTORY: Hypertension. ALLERGIES: None. CURRENT MEDICATIONS: Reviewed as listed in the MRAD. REVIEW OF SYSTEMS: Twelve-point system obtained. Pertinent positives discussed in my history of present illness, otherwise noncontributory. All systems that were negative were reviewed as well. PHYSICAL EXAMINATION: VITAL SIGNS: Blood pressure 156/79. She is fully awake, following commands, afebrile, pulse ox 96% on 30% BiPAP. HEENT: Sclerae nonicteric. NECK: Supple. LUNGS: Diminished breath sounds. CARDIOVASCULAR: Regular rate. ABDOMEN: Soft, obese. EXTREMITIES: With no pitting edema. LABORATORY DATA: Reviewed. ABGs as discussed in history of present illness. Sodium 146, potassium 5.0, BUN 27, creatinine 1.3, bicarbonate 35. ProBNP is 812. Chest x-ray with no acute infiltrate. IMPRESSION: 1. Acute on chronic hypercapnic respiratory failure secondary to acute exacerbation of chronic obstructive pulmonary disease. 2. Highly suspected obstructive sleep apnea/obesity hypoventilation syndrome. 3. Highly suspected severe chronic obstructive pulmonary disease with ongoing tobaccoism. She smoked for 40 years. 4. No definite pneumonia seen on the chest x-ray. RECOMMENDATIONS: 1. The patient has done clinically well. I would expect that her hypercapnia would be compensated. Arterial blood gases are pending. If pH normalizes, then I would discontinue BiPAP and use nasal cannula to keep sats 90-92%. 2. Continue bronchodilators. 3. Deep venous thrombosis prophylaxis. 4. Weight loss is strongly advised. 5. Smoking cessation counseling provided. 6. The patient would benefit from outpatient sleep study to qualify her for nocturnal CPAP. Discussed with the patient's . HERMELINDO HAHN MD DR: DEJA/lalo JOB#: [id number] / [id number] DAXA
[2017-01-06 10:32] VITALS: BP 118/78
[2017-01-06] MEDS ORDERED: ONDANSETRON PF 4 MG/2 ML VIAL. IV PRN (11:45)
[2017-01-06] MEDS ORDERED: ACETAMINOPHEN 325 MG TABLET. PO PRN (11:45)
[2017-01-06] MEDS ORDERED: hydrALAZINE 20 MG/ML VIAL. IVP PRN (11:45)
[2017-01-06] MEDS ORDERED: DOCUSATE SODIUM 100 MG CAPSULE. PO PRN (11:45)
[2017-01-06] MEDS ORDERED: ALBUTEROL SULFATE 2.5 MG/3 ML NEBU. NEB PRN (11:45)
[2017-01-06] MEDS ORDERED: traMADol 50 MG TABLET PO PRN (11:45)
[2017-01-06] MEDS ORDERED: MORPHINE SULFATE 2 MG/ML DISP.SYRIN. IV PRN (11:45)
[2017-01-06] MEDS ORDERED: IPRATRPIUM/ALBUTEROL 0.5/2.5MG 3 ML NEBU. NEB SCH ×2 (12:00→13:00)
--- NOTE | 2017-01-06 13:10 | PDOC ---
PROGRESS NOTES Chief Complaint Chief Complaint 1. Acute hypercapneic respi failure needing NIPPV at ER, transiently 2. Acute encephalopathy sec to CO2 RETention 3. Obesity, possible JOE 4. 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 AOCD 6. Leukocytosis on chronic prednisone 7. COPD exacerbation, severe 8. SMoker 9. SIRS POA 10. Mild PCM - albumin 3.1 11. chronic hypoxic resp failure on home o2 5L 12. tobaccoism PLAn: fu with pulm need keep low NC requirement, Sat 88% is ok bipap prn cont home meds duoneb q4h, albuterol prn, add solumedrol bid dvt, gi ppx ptot labs tmr History of Present Illness History of Present Illness mental better looks tired, sob on NC 3l wants to go home, willing to try to dc smoking Vitals Vitals Vital Signs Date Time Temp Pulse Resp B/P (MAP) Pulse Ox O2 Delivery O2 Flow Rate FiO2 01/06/17 11:54 91 Nasal Cannula 2.0 01/06/17 10:32 97.9 80 28 118/78 (91) 97.9 Physical Exam General: Alert, Cooperative, No acute distress Heart: Regular rate, Normal S1, Normal S2 Lungs: Other (bl mild wheezing with rhochis) Abdomen: Normal bowel sounds, Soft, No tenderness, No hepatosplenomegaly, No masses Extremities: No clubbing, No cyanosis, No edema, Normal pulses, No tenderness/ swelling Skin: No rashes, No breakdown, No significant lesion Labs LABS Laboratory Tests Test 01/05/17 13:39 01/05/17 15:10 01/05/17 20:25 01/05/17 21:35 Urine Collection Type U cath Urine Color Yellow Urine Clarity Cloudy Urine pH 6.0 Urine Specific [place] 1.015 Urine Protein 30 mg/dL (NEG-TRACE) Urine Glucose (UA) Negative mg/dL (NEG) Urine Ketones (Stick) Negative mg/dL (NEG) Urine Blood Large (NEG) Urine Nitrite Positive (NEG) Urine Bilirubin Negative (NEG) Urine Urobilinogen Dipstick 0.2 mg/dL (0.2 mg/dL) Urine Leukocyte Esterase Small (NEG) Urine RBC >40 /HPF (0-2) Urine WBC 11-20 /HPF (0-4) Urine Bacteria Many /HPF (0-FEW) O2 Saturation 95 % (92-99) 93 % (92-99) Arterial Blood pH 7.21 (7.35-7.45) 7.32 (7.35-7.45) Arterial Blood pCO2 at Patient Temp 77 mmHg (35-46) 55 mmHg (35-46) Arterial Blood pO2 at Patient Temp 84 mmHg (65-108) 64 mmHg (65-108) Arterial Blood HCO3 30 mmol/L (21-28) 28 mmol/L (21-28) Arterial Blood Base Excess 0 mmol/L (-3-3) 1 mmol/L (-3-3) Oxyhemoglobin 93.8 % Methemoglobin 0.5 % (0.0-1.9) Carbon Monoxide, Quantitative 1.0 % (0.0-1.9) FiO2 44.0 30.0 Troponin I Quantitative < 0.017 ng/mL (0.000-0.055) Test 01/06/17 03:40 01/06/17 08:00 Troponin I Quantitative < 0.017 ng/mL (0.000-0.055) O2 Saturation 91 % (92-99) Arterial Blood pH 7.38 (7.35-7.45) Arterial Blood pCO2 at Patient Temp 47 mmHg (35-46) Arterial Blood pO2 at Patient Temp 62 mmHg (65-108) Arterial Blood HCO3 27 mmol/L (21-28) Arterial Blood Base Excess 1 mmol/L (-3-3) FiO2 30 Review of Systems Review of Systems no fever, chills, chest pain Assessment and Plan Assessmemt and Plan Problems Medical Problems: (1) COPD exacerbation Status: Acute (2) Dyspnea Status: Acute (3) Hypertension Status: Acute (4) Mental status alteration Status: Acute Problems: Comment Review of Relevant I have reviewed the following items sonal (where applicable) has been applied. Labs Laboratory Tests Test 01/05/17 11:50 01/05/17 12:55 01/05/17 13:39 01/05/17 15:10 White Blood Count 12.8 x10^3/uL (4.0-11.0) Red Blood Count 3.58 x10^6/uL (3.50-5.40) Hemoglobin 11.2 g/dL (12.0-15.5) Hematocrit 36.4 % (36.0-47.0) Mean Corpuscular Volume 102 fL (79-100) Mean Corpuscular Hemoglobin 31 pg (25-35) Mean Corpuscular Hemoglobin Concent 31 g/dL (31-37) Red Cell Distribution Width 13.9 % (11.5-14.5) Platelet Count 199 x10^3/uL (140-400) Neutrophils (%) (Auto) 95 % (31-73) Lymphocytes (%) (Auto) 3 % (24-48) Monocytes (%) (Auto) 2 % (0-9) Eosinophils (%) (Auto) 0 % (0-3) Basophils (%) (Auto) 0 % (0-3) Neutrophils # (Auto) 12.1 x10^3uL (1.8-7.7) Lymphocytes # (Auto) 0.4 x10^3/uL (1.0-4.8) Monocytes # (Auto) 0.3 x10^3/uL (0.0-1.1) Eosinophils # (Auto) 0.0 x10^3/uL (0.0-0.7) Basophils # (Auto) 0.0 x10^3/uL (0.0-0.2) Segmented Neutrophils % 91 % (35-66) Band Neutrophils % 4 % (0-9) Lymphocytes % 2 % (24-48) Monocytes % 3 % (0-10) Platelet Estimate Adequate (ADEQUATE) Polychromasia Slight Basophilic Stippling Present Macrocytosis Slight Lactic Acid Level 0.9 mmol/L (0.4-2.0) Sodium Level 146 mmol/L (136-145) Potassium Level 5.0 mmol/L (3.5-5.1) Chloride Level 110 mmol/L (98-107) Carbon Dioxide Level 35 mmol/L (21-32) Anion Gap 1 (6-14) Blood Urea Nitrogen 27 mg/dL (7-20) Creatinine 1.3 mg/dL (0.6-1.0) Estimated GFR (Cockcroft-Gault) 40.5 BUN/Creatinine Ratio 21 (6-20) Glucose Level 146 mg/dL (70-99) Calcium Level 8.5 mg/dL (8.5-10.1) Total Bilirubin 0.2 mg/dL (0.2-1.0) Aspartate Amino Transf (AST/SGOT) 11 U/L (15-37) Alanine Aminotransferase (ALT/SGPT) 15 U/L (14-59) Alkaline Phosphatase 98 U/L (46-116) Creatine Kinase 24 U/L (26-192) Creatine Kinase MB (Mass) 0.6 ng/mL (0.0-3.6) Creatine Kinase MB Relative Index % (0-4) Troponin I Quantitative < 0.017 ng/mL (0.000-0.055) UW-Ozz-C-Type Natriuretic Peptide 812 pg/mL (0-124) Total Protein 6.2 g/dL (6.4-8.2) Albumin 3.1 g/dL (3.4-5.0) Albumin/Globulin Ratio 1.0 (1.0-1.7) Lipase 79 U/L (73-393) Urine Collection Type U cath Urine Color Yellow Urine Clarity Cloudy Urine pH 6.0 Urine Specific [place] 1.015 Urine Protein 30 mg/dL (NEG-TRACE) Urine Glucose (UA) Negative mg/dL (NEG) Urine Ketones (Stick) Negative mg/dL (NEG) Urine Blood Large (NEG) Urine Nitrite Positive (NEG) Urine Bilirubin Negative (NEG) Urine Urobilinogen Dipstick 0.2 mg/dL (0.2 mg/dL) Urine Leukocyte Esterase Small (NEG) Urine RBC >40 /HPF (0-2) Urine WBC 11-20 /HPF (0-4) Urine Bacteria Many /HPF (0-FEW) O2 Saturation 95 % (92-99) Arterial Blood pH 7.21 (7.35-7.45) Arterial Blood pCO2 at Patient Temp 77 mmHg (35-46) Arterial Blood pO2 at Patient Temp 84 mmHg (65-108) Arterial Blood HCO3 30 mmol/L (21-28) Arterial Blood Base Excess 0 mmol/L (-3-3) Oxyhemoglobin 93.8 % Methemoglobin 0.5 % (0.0-1.9) Carbon Monoxide, Quantitative 1.0 % (0.0-1.9) FiO2 44.0 Test 01/05/17 20:25 01/05/17 21:35 01/06/17 03:40 01/06/17 08:00 O2 Saturation 93 % (92-99) 91 % (92-99) Arterial Blood pH 7.32 (7.35-7.45) 7.38 (7.35-7.45) Arterial Blood pCO2 at Patient Temp 55 mmHg (35-46) 47 mmHg (35-46) Arterial Blood pO2 at Patient Temp 64 mmHg (65-108) 62 mmHg (65-108) Arterial Blood HCO3 28 mmol/L (21-28) 27 mmol/L (21-28) Arterial Blood Base Excess 1 mmol/L (-3-3) 1 mmol/L (-3-3) FiO2 30.0 30 Troponin I Quantitative < 0.017 ng/mL (0.000-0.055) < 0.017 ng/mL (0.000-0.055) Laboratory Tests Test 01/05/17 13:39 01/05/17 15:10 01/05/17 20:25 01/05/17 21:35 Urine Collection Type U cath Urine Color Yellow Urine Clarity Cloudy Urine pH 6.0 Urine Specific [place] 1.015 Urine Protein 30 mg/dL (NEG-TRACE) Urine Glucose (UA) Negative mg/dL (NEG) Urine Ketones (Stick) Negative mg/dL (NEG) Urine Blood Large (NEG) Urine Nitrite Positive (NEG) Urine Bilirubin Negative (NEG) Urine Urobilinogen Dipstick 0.2 mg/dL (0.2 mg/dL) Urine Leukocyte Esterase Small (NEG) Urine RBC >40 /HPF (0-2) Urine WBC 11-20 /HPF (0-4) Urine Bacteria Many /HPF (0-FEW) O2 Saturation 95 % (92-99) 93 % (92-99) Arterial Blood pH 7.21 (7.35-7.45) 7.32 (7.35-7.45) Arterial Blood pCO2 at Patient Temp 77 mmHg (35-46) 55 mmHg (35-46) Arterial Blood pO2 at Patient Temp 84 mmHg (65-108) 64 mmHg (65-108) Arterial Blood HCO3 30 mmol/L (21-28) 28 mmol/L (21-28) Arterial Blood Base Excess 0 mmol/L (-3-3) 1 mmol/L (-3-3) Oxyhemoglobin 93.8 % Methemoglobin 0.5 % (0.0-1.9) Carbon Monoxide, Quantitative 1.0 % (0.0-1.9) FiO2 44.0 30.0 Troponin I Quantitative < 0.017 ng/mL (0.000-0.055) Test 01/06/17 03:40 01/06/17 08:00 Troponin I Quantitative < 0.017 ng/mL (0.000-0.055) O2 Saturation 91 % (92-99) Arterial Blood pH 7.38 (7.35-7.45) Arterial Blood pCO2 at Patient Temp 47 mmHg (35-46) Arterial Blood pO2 at Patient Temp 62 mmHg (65-108) Arterial Blood HCO3 27 mmol/L (21-28) Arterial Blood Base Excess 1 mmol/L (-3-3) FiO2 30 Microbiology 01/05/17 Blood Culture - Preliminary, Resulted NO GROWTH AFTER 1 DAY Medications Current Medications Sodium Chloride (Normal Saline Flush) 10 ml 1X ONCE IV Last administered on 13:10; Start 01/05/17 at 12:15; Stop 01/05/17 at 12:19; Status DC Sodium Chloride 1,000 ml @ 1,000 mls/hr Q1H IV Last administered on 01/05/17 13:10; Start 01/05/17 at 12:12; Stop 01/05/17 at 13:11; Status DC Albuterol/ Ipratropium (Duoneb) 3 ml 1X ONCE NEB Last administered on 13:09; Start 01/05/17 at 12:15; Stop 01/05/17 at 12:19; Status DC Methylprednisolone Sodium Succinate (SOLU-Medrol 125MG VIAL) 125 mg 1X ONCE IV Last administered on 01/05/17 13:10; Start 01/05/17 at 12:15; Stop 01/05/17 at 12:19; Status DC Fentanyl Citrate (Fentanyl 2ml Vial) 25 mcg PRN Q15MIN PRN IV PAIN GREATER THAN 3/10 Last administered on 01/05/17 13:10; Start 01/05/17 at 12:15; Stop at 11:41; Status DC Ondansetron HCl (Zofran) 4 mg PRN Q8HRS PRN IV NAUSEA/VOMITING; Start 01/05/17 at 16:00; Stop 01/05/17 at 17:27; Status DC Fentanyl Citrate (Fentanyl 2ml Vial) 50 mcg PRN Q2HR PRN IV PAIN; Start at 16:00; Stop 01/06/17 at 15:59 Levofloxacin/ Dextrose 150 ml @ 100 mls/hr 1X ONCE IV Last administered on 16:44; Start 01/05/17 at 16:00; Stop 01/05/17 at 17:29; Status DC Ondansetron HCl (Zofran) 4 mg PRN Q6HRS PRN IV NAUSEA/VOMITING; Start 01/05/17 at 17:24; Stop 01/06/17 at 17:23 Albuterol/ Ipratropium (Duoneb) 3 ml RTQID NEB Last administered on 01/06/17 08 :00; Start 01/05/17 at 20:00; Stop 01/06/17 at 11:40; Status DC Acetaminophen (Tylenol) 500 mg PRN Q6HRS PRN PO MILD PAIN / TEMP; Start at 17:30 Benzonatate (Tessalon Perle) 100 mg [id number] PO Last administered on 01/06/17 09: 13; Start 01/05/17 at 21:00 Labetalol HCl (Normodyne) 10 mg PRN Q2HR PRN IVP HYPERTENSION, SEE COMMENTS; Start 01/05/17 at 17:30 Enoxaparin Sodium (Lovenox 40mg Syringe) 40 mg Q24H SQ Last administered on 21:05; Start 01/05/17 at 18:00 Acetaminophen (Tylenol) 650 mg PRN Q6HRS PRN PO FEVER; Start 01/06/17 at 11:45 Ondansetron HCl (Zofran) 4 mg PRN Q6HRS PRN IV NAUSEA/VOMITING; Start 01/06/17 at 11:45 Morphine Sulfate 2 mg PRN Q2HR PRN IV PAIN; Start 01/06/17 at 11:45 Tramadol HCl (Ultram) 50 mg PRN Q6HRS PRN PO PAIN; Start 01/06/17 at 11:45 Hydralazine HCl (Apresoline) 10 mg PRN Q4HRS PRN IVP ELEVATED BP, SEE COMMENTS ; Start 01/06/17 at 11:45 Docusate Sodium (Colace) 100 mg PRN DAILY PRN PO CONSTIPATION; Start 01/06/17 at 11:45 Albuterol/ Ipratropium (Duoneb) 3 ml RTQID NEB ; Start 01/06/17 at 12:00; Stop at 12:00; Status DC Albuterol Sulfate (Ventolin Neb Soln) 2.5 mg PRN Q2HR PRN NEB SHORTNESS OF BREATH; Start 01/06/17 at 11:45 Guaifenesin (Mucinex) 600 mg BID PO ; Start 01/06/17 at 21:00 Albuterol/ Ipratropium (Duoneb) 3 ml RTQID NEB ; Start 01/06/17 at 13:00 Active Scripts Active Reported Promethazine Hcl 12.5 Mg Tablet 1 Tab PO DAILY Anoro Ellipta 62.5-25 Mcg Inh (Umeclidinium Brm/Vilanterol Tr) 1 Each Disk.w.dev 1 Each IH DAILY Prednisone 20 Mg Tablet 20 Mg PO DAILY Lisinopril 40 Mg Tablet 1 Tab PO DAILY Megared [place]-3 Krill Oil Sfgl (Krill/Om-3/Dha/Epa/Phospho/Ast) 1 Each Capsule 1 Each PO DAILY Tylenol (Acetaminophen) 325 Mg Tablet 3 Tab PO DAILY Citalopram Hbr (Citalopram Hydrobromide) 20 Mg Tablet 1 Tab PO DAILY Vitals/I & O Vital Sign - Last 24 Hours 01/05/17 01/05/17 01/05/17 01/05/17 13:09 13:10 13:10 13:40 Pulse 71 81 Resp 20 24 20 B/P (MAP) 148/70 (96) 149/67 (94) Pulse Ox 97 94 97 97 O2 Delivery Nasal Cannula Nasal Cannula Aerosol Mask Nasal Cannula O2 Flow Rate 6.0 6.0 6.0 01/05/17 01/05/17 01/05/17 01/05/17 14:10 16:45 17:15 17:45 Pulse 78 84 80 76 Resp 20 20 23 20 B/P (MAP) 178/84 (115) 137/85 (102) 148/77 (100) 136/68 (90) Pulse Ox 98 95 98 99 O2 Delivery Nasal Cannula Nasal Cannula Nasal Cannula Nasal Cannula O2 Flow Rate 6.0 6.0 6.0 6.0 01/05/17 01/05/17 01/05/17 01/05/17 19:05 19:20 20:39 21:47 Temp 97.6 97.6 Pulse 81 Resp 22 B/P (MAP) 117/64 (81) Pulse Ox 95 97 94 O2 Delivery Nasal Cannula BiPAP/CPAP BiPAP/CPAP Bi-pap O2 Flow Rate 6.0 01/05/17 01/05/17 01/05/17 01/06/17 22:09 23:00 23:33 00:45 Temp 98.6 98.6 Pulse 75 Resp 22 B/P (MAP) 134/71 (92) Pulse Ox 95 94 O2 Delivery Bi-pap Room Air BiPAP/CPAP BiPAP/CPAP 01/06/17 01/06/17 01/06/17 01/06/17 03:00 04:04 07:22 08:00 Temp 98.6 98.5 98.6 98.5 Pulse 90 79 Resp 24 28 B/P (MAP) 160/94 (116) 156/79 (104) Pulse Ox 91 96 O2 Delivery Room Air BiPAP/CPAP BiPAP/CPAP BiPAP/CPAP 01/06/17 01/06/17 10:32 11:54 Temp 97.9 97.9 Pulse 80 Resp 28 B/P (MAP) 118/78 (91) Pulse Ox 94 91 O2 Delivery Nasal Cannula Nasal Cannula O2 Flow Rate 2.5 2.0 Intake and Output 01/05/17 01/05/17 01/06/17 15:00 23:00 07:00 Intake Total 1000 ml 150 ml 240 ml Output Total 300 ml Balance 1000 ml 150 ml -60 ml SOY RAMÍREZ MD Jan 06, 2017 13:10
[2017-01-06 14:27] VITALS: BP 158/82
[2017-01-06] MEDS: methylPREDNISolone SOD SUCC PF 40 MG/ML VIAL. IV SCH ×2 (14:50→20:09)
[2017-01-06] MEDS: PROMETHAZINE 12.5 MG TABLET. PO SCH (14:50)
[2017-01-06] MEDS: CITALOPRAM 20 MG TABLET. PO SCH (14:50)
[2017-01-06] MEDS: LISINOPRIL 40 MG TABLET. PO SCH (14:50)
[2017-01-06] MEDS: ENOXAPARIN 40 MG/0.4 ML SYRINGE. SQ SCH (19:01)
[2017-01-06 19:20] VITALS: BP 158/84
[2017-01-06] MEDS: FAMOTIDINE 20 MG TABLET. PO SCH (20:07)
[2017-01-06 23:20] VITALS: BP 154/76
[2017-01-07 03:20] VITALS: BP 150/77
[2017-01-07 04:17] LABS: BASO % 0 % (0-3); EOS % 0 % (0-3); HEMATOCRIT 31.1 % (36.0-47.0); LYMPH # 0.2 x10^3/uL (1.0-4.8); LYMPH % 4 % (24-48); MEAN CORPUSCULAR HEMOGLOBIN 32 pg (25-35); MEAN CORPUSCULAR HGB CONC 32 g/dL (31-37); MEAN CORPUSCULAR VOLUME 98 fL (79-100); MONO % 2 % (0-9); NEUT % 94 % (31-73); PLATELET COUNT 163 x10^3/uL (140-400); RED BLOOD COUNT 3.16 x10^6/uL (3.50-5.40); RED CELL DISTRIBUTION WIDTH 13.6 % (11.5-14.5); WHITE BLOOD COUNT 5.7 x10^3/uL (4.0-11.0)
[2017-01-07 04:32] LABS: CALCIUM 8.8 mg/dL (8.5-10.1); CREATININE 1.2 mg/dL (0.6-1.0); GFR 44.4; POTASSIUM 4.3 mmol/L (3.5-5.1)
[2017-01-07] MEDS: IPRATRPIUM/ALBUTEROL 0.5/2.5MG 3 ML NEBU. NEB SCH ×2 (07:00→10:41)
[2017-01-07 07:55] VITALS: BP 165/79
[2017-01-07] MEDS: PROMETHAZINE 12.5 MG TABLET. PO SCH (09:04)
[2017-01-07] MEDS: BENZONATATE 100 MG CAPSULE. PO SCH (09:04)
[2017-01-07] MEDS: LISINOPRIL 40 MG TABLET. PO SCH (09:05)
[2017-01-07] MEDS: CITALOPRAM 20 MG TABLET. PO SCH (09:05)
[2017-01-07] MEDS: FAMOTIDINE 20 MG TABLET. PO SCH (09:05)
[2017-01-07] MEDS: methylPREDNISolone SOD SUCC PF 40 MG/ML VIAL. IV SCH (09:06)
--- NOTE | 2017-01-07 09:44 | PDOC ---
PULMONARY PROGRESS NOTES Subjective feels better Vitals Vital Signs Date Time Temp Pulse Resp B/P (MAP) Pulse Ox O2 Delivery O2 Flow Rate FiO2 01/07/17 09:05 94 165/79 01/07/17 08:00 Nasal Cannula 2.5 01/07/17 07:55 98.4 22 96 98.4 General: Alert, No acute distress Lungs: Other (occ wheezes) Cardiovascular: S1 Abdomen: Soft, Other (obese) Neuro Exam: Alert Extremities: No Edema Skin: Warm Labs Laboratory Tests Test 01/05/17 11:50 01/05/17 12:55 01/05/17 13:39 01/05/17 15:10 White Blood Count 12.8 x10^3/uL (4.0-11.0) Red Blood Count 3.58 x10^6/uL (3.50-5.40) Hemoglobin 11.2 g/dL (12.0-15.5) Hematocrit 36.4 % (36.0-47.0) Mean Corpuscular Volume 102 fL (79-100) Mean Corpuscular Hemoglobin 31 pg (25-35) Mean Corpuscular Hemoglobin Concent 31 g/dL (31-37) Red Cell Distribution Width 13.9 % (11.5-14.5) Platelet Count 199 x10^3/uL (140-400) Neutrophils (%) (Auto) 95 % (31-73) Lymphocytes (%) (Auto) 3 % (24-48) Monocytes (%) (Auto) 2 % (0-9) Eosinophils (%) (Auto) 0 % (0-3) Basophils (%) (Auto) 0 % (0-3) Neutrophils # (Auto) 12.1 x10^3uL (1.8-7.7) Lymphocytes # (Auto) 0.4 x10^3/uL (1.0-4.8) Monocytes # (Auto) 0.3 x10^3/uL (0.0-1.1) Eosinophils # (Auto) 0.0 x10^3/uL (0.0-0.7) Basophils # (Auto) 0.0 x10^3/uL (0.0-0.2) Segmented Neutrophils % 91 % (35-66) Band Neutrophils % 4 % (0-9) Lymphocytes % 2 % (24-48) Monocytes % 3 % (0-10) Platelet Estimate Adequate (ADEQUATE) Polychromasia Slight Basophilic Stippling Present Macrocytosis Slight Lactic Acid Level 0.9 mmol/L (0.4-2.0) Sodium Level 146 mmol/L (136-145) Potassium Level 5.0 mmol/L (3.5-5.1) Chloride Level 110 mmol/L (98-107) Carbon Dioxide Level 35 mmol/L (21-32) Anion Gap 1 (6-14) Blood Urea Nitrogen 27 mg/dL (7-20) Creatinine 1.3 mg/dL (0.6-1.0) Estimated GFR (Cockcroft-Gault) 40.5 BUN/Creatinine Ratio 21 (6-20) Glucose Level 146 mg/dL (70-99) Calcium Level 8.5 mg/dL (8.5-10.1) Total Bilirubin 0.2 mg/dL (0.2-1.0) Aspartate Amino Transf (AST/SGOT) 11 U/L (15-37) Alanine Aminotransferase (ALT/SGPT) 15 U/L (14-59) Alkaline Phosphatase 98 U/L (46-116) Creatine Kinase 24 U/L (26-192) Creatine Kinase MB (Mass) 0.6 ng/mL (0.0-3.6) Creatine Kinase MB Relative Index % (0-4) Troponin I Quantitative < 0.017 ng/mL (0.000-0.055) QT-Udu-D-Type Natriuretic Peptide 812 pg/mL (0-124) Total Protein 6.2 g/dL (6.4-8.2) Albumin 3.1 g/dL (3.4-5.0) Albumin/Globulin Ratio 1.0 (1.0-1.7) Lipase 79 U/L (73-393) Urine Collection Type U cath Urine Color Yellow Urine Clarity Cloudy Urine pH 6.0 Urine Specific [place] 1.015 Urine Protein 30 mg/dL (NEG-TRACE) Urine Glucose (UA) Negative mg/dL (NEG) Urine Ketones (Stick) Negative mg/dL (NEG) Urine Blood Large (NEG) Urine Nitrite Positive (NEG) Urine Bilirubin Negative (NEG) Urine Urobilinogen Dipstick 0.2 mg/dL (0.2 mg/dL) Urine Leukocyte Esterase Small (NEG) Urine RBC >40 /HPF (0-2) Urine WBC 11-20 /HPF (0-4) Urine Bacteria Many /HPF (0-FEW) O2 Saturation 95 % (92-99) Arterial Blood pH 7.21 (7.35-7.45) Arterial Blood pCO2 at Patient Temp 77 mmHg (35-46) Arterial Blood pO2 at Patient Temp 84 mmHg (65-108) Arterial Blood HCO3 30 mmol/L (21-28) Arterial Blood Base Excess 0 mmol/L (-3-3) Oxyhemoglobin 93.8 % Methemoglobin 0.5 % (0.0-1.9) Carbon Monoxide, Quantitative 1.0 % (0.0-1.9) FiO2 44.0 Test 01/05/17 20:25 01/05/17 21:35 01/06/17 03:40 01/06/17 08:00 O2 Saturation 93 % (92-99) 91 % (92-99) Arterial Blood pH 7.32 (7.35-7.45) 7.38 (7.35-7.45) Arterial Blood pCO2 at Patient Temp 55 mmHg (35-46) 47 mmHg (35-46) Arterial Blood pO2 at Patient Temp 64 mmHg (65-108) 62 mmHg (65-108) Arterial Blood HCO3 28 mmol/L (21-28) 27 mmol/L (21-28) Arterial Blood Base Excess 1 mmol/L (-3-3) 1 mmol/L (-3-3) FiO2 30.0 30 Troponin I Quantitative < 0.017 ng/mL (0.000-0.055) < 0.017 ng/mL (0.000-0.055) Test 01/07/17 03:28 White Blood Count 5.7 x10^3/uL (4.0-11.0) Red Blood Count 3.16 x10^6/uL (3.50-5.40) Hemoglobin 10.0 g/dL (12.0-15.5) Hematocrit 31.1 % (36.0-47.0) Mean Corpuscular Volume 98 fL (79-100) Mean Corpuscular Hemoglobin 32 pg (25-35) Mean Corpuscular Hemoglobin Concent 32 g/dL (31-37) Red Cell Distribution Width 13.6 % (11.5-14.5) Platelet Count 163 x10^3/uL (140-400) Neutrophils (%) (Auto) 94 % (31-73) Lymphocytes (%) (Auto) 4 % (24-48) Monocytes (%) (Auto) 2 % (0-9) Eosinophils (%) (Auto) 0 % (0-3) Basophils (%) (Auto) 0 % (0-3) Neutrophils # (Auto) 5.4 x10^3uL (1.8-7.7) Lymphocytes # (Auto) 0.2 x10^3/uL (1.0-4.8) Monocytes # (Auto) 0.1 x10^3/uL (0.0-1.1) Eosinophils # (Auto) 0.0 x10^3/uL (0.0-0.7) Basophils # (Auto) 0.0 x10^3/uL (0.0-0.2) Sodium Level 144 mmol/L (136-145) Potassium Level 4.3 mmol/L (3.5-5.1) Chloride Level 107 mmol/L (98-107) Carbon Dioxide Level 31 mmol/L (21-32) Anion Gap 6 (6-14) Blood Urea Nitrogen 33 mg/dL (7-20) Creatinine 1.2 mg/dL (0.6-1.0) Estimated GFR (Cockcroft-Gault) 44.4 Glucose Level 156 mg/dL (70-99) Calcium Level 8.8 mg/dL (8.5-10.1) Laboratory Tests Test 01/07/17 03:28 White Blood Count 5.7 x10^3/uL (4.0-11.0) Red Blood Count 3.16 x10^6/uL (3.50-5.40) Hemoglobin 10.0 g/dL (12.0-15.5) Hematocrit 31.1 % (36.0-47.0) Mean Corpuscular Volume 98 fL (79-100) Mean Corpuscular Hemoglobin 32 pg (25-35) Mean Corpuscular Hemoglobin Concent 32 g/dL (31-37) Red Cell Distribution Width 13.6 % (11.5-14.5) Platelet Count 163 x10^3/uL (140-400) Neutrophils (%) (Auto) 94 % (31-73) Lymphocytes (%) (Auto) 4 % (24-48) Monocytes (%) (Auto) 2 % (0-9) Eosinophils (%) (Auto) 0 % (0-3) Basophils (%) (Auto) 0 % (0-3) Neutrophils # (Auto) 5.4 x10^3uL (1.8-7.7) Lymphocytes # (Auto) 0.2 x10^3/uL (1.0-4.8) Monocytes # (Auto) 0.1 x10^3/uL (0.0-1.1) Eosinophils # (Auto) 0.0 x10^3/uL (0.0-0.7) Basophils # (Auto) 0.0 x10^3/uL (0.0-0.2) Sodium Level 144 mmol/L (136-145) Potassium Level 4.3 mmol/L (3.5-5.1) Chloride Level 107 mmol/L (98-107) Carbon Dioxide Level 31 mmol/L (21-32) Anion Gap 6 (6-14) Blood Urea Nitrogen 33 mg/dL (7-20) Creatinine 1.2 mg/dL (0.6-1.0) Estimated GFR (Cockcroft-Gault) 44.4 Glucose Level 156 mg/dL (70-99) Calcium Level 8.8 mg/dL (8.5-10.1) Medications Active Scripts Medications Dose Route/Sig Max Daily Dose Days Date Category Promethazine Hcl 12.5 Mg Tablet 1 Tab PO DAILY 01/06/17 Reported Anoro Ellipta 62.5-25 Mcg Inh (Umeclidinium Brm/Vilanterol Tr) 1 Each Disk.w.dev 1 Each IH DAILY 01/06/17 Reported Prednisone 20 Mg Tablet 20 Mg PO DAILY 01/06/17 Reported Lisinopril 40 Mg Tablet 1 Tab PO DAILY 01/06/17 Reported Megared [place]-3 Krill Oil Sfgl (Krill/Om-3/Dha/Epa/Phospho/Ast) 1 Each Capsule 1 Each PO DAILY 01/06/17 Reported Tylenol (Acetaminophen) 325 Mg Tablet 3 Tab PO DAILY 01/06/17 Reported Citalopram Hbr (Citalopram Hydrobromide) 20 Mg Tablet 1 Tab PO DAILY 01/06/17 Reported Impression . 1. Acute on chronic hypercapnic respiratory failure secondary to acute exacerbation of chronic obstructive pulmonary disease. 2. Highly suspected obstructive sleep apnea/obesity hypoventilation syndrome. 3. Highly suspected severe chronic obstructive pulmonary disease with ongoing tobaccoism. She smoked for 40 years. 4. No definite pneumonia seen on the chest x-ray. Plan . 1. The patient has done clinically well. her hypercapnia is well compensated. Arterial blood gases have improved 2. Continue bronchodilators. 3. Deep venous thrombosis prophylaxis. 4. Weight loss is strongly advised. 5. Smoking cessation counseling provided. 6. The patient would benefit from outpatient sleep study to qualify her for nocturnal CPAP. Discussed with the patient's . 7. ok with dc home. 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 6. recommend 3 liters of oxygen HERMELINDO HHAN MD Jan 07, 2017 09:44
[2017-01-07 10:55] VITALS: BP 117/72
[2017-01-07] MEDS ORDERED: BENZ100C2 PO (11:43)
[2017-01-07] MEDS ORDERED: FAMO20TA5 PO (11:43)
[2017-01-07] MEDS ORDERED: PRED20TA PO (11:43)
[2017-01-07] MEDS ORDERED: GUAI600T38 PO (11:43)
--- NOTE | 2017-01-07 12:57 | PDOC3 ---
Discharge Summary [facility] Date of Admission: January 05, 2017 Discharge Date: Jan 07, 2017 Admitting Diagnosis 1. Acute hypercapneic respi failure needing NIPPV at ER, transiently 2. Acute encephalopathy sec to CO2 RETention 3. Obesity, possible JOE 4. 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 AOCD 6. Leukocytosis on chronic prednisone 7. COPD exacerbation, severe 8. SMoker 9. SIRS POA 10. Mild PCM - albumin 3.1 11. chronic hypoxic resp failure on home o2 5L 12. tobaccoism 13. asymptomatic + ucx 14. resp acidosis Problems: Final Diagnosis CONSULTS pulm Brief Hospital Course Ms. Haq is a 71 old F, smoker, on home o2 5-7L, was sent for AMS, which is 2/ 2 copd exacerbation, with co2 retention. Pt improved with bipap. still mild cough. Sat ok at NC 3L, asked her to keep Sat 90% is good enough, recommend NC3 L when go home. taper steroid , cough meds, try to quit smoke. no need treat asymptomatic + ucx. fu with pulm for sleep study to get bipap. dc time 40min. General: Alert, Cooperative, No acute distress Heart: Regular rate, Normal S1, Normal S2 Lungs: Other (bl mild wheezing with rhochis) Abdomen: Normal bowel sounds, Soft, No tenderness, No hepatosplenomegaly, No masses Extremities: No clubbing, No cyanosis, No edema, Normal pulses, No tenderness/ swelling Skin: No rashes, No breakdown, No significant lesion Problems: Disposition home CONDITION AT DISCHARGE: Improved Diet regular Scheduled Acetaminophen (Tylenol), 3 TAB PO DAILY, (Reported) Benzonatate (Benzonatate), 100 MG PO [id number] Citalopram Hydrobromide (Citalopram Hbr), 1 TAB PO DAILY, (Reported) Famotidine (Famotidine), 20 MG PO BID Guaifenesin (Mucinex), 600 MG PO BID Krill/Om-3/Dha/Epa/Phospho/Ast (Megared [place]-3 Krill Oil Sfgl), 1 EACH PO DAILY , (Reported) Lisinopril (Lisinopril), 1 TAB PO DAILY, (Reported) Prednisone (Prednisone), 40 MG PO DAILY08 Promethazine Hcl (Promethazine Hcl), 1 TAB PO DAILY, (Reported) Umeclidinium Brm/Vilanterol Tr (Anoro Ellipta 62.5-25 Mcg Inh), 1 EACH IH DAILY, (Reported) Discontinued Medications Prednisone (Prednisone), 20 MG PO DAILY, (Reported) Follow Up pulm in 2 weeks SOY RAMÍREZ MD Jan 07, 2017 12:57
[2017-01-08] MEDS ORDERED: predniSONE 20 MG TABLET PO SCH (08:00)
== END 2017-01-07 13:04 | disposition home or self-care (01) | DRG 682 ==
LOC: ER 11:34 → 6 SOUTH 15:54
PROVIDERS: ADMIT Internal Medicine; ATTEND Internal Medicine
PROC: 5A09357 Assistance with Respiratory Ventilation, Less than 24 Consecutive Hours, Continuous Positive Airway Pressure (ICD-10-PCS; principal; 2017-01-05)
DX: N17.0 Acute kidney failure with tubular necrosis (principal); J96.22 Acute and chronic respiratory failure with hypercapnia; G93.40 Encephalopathy, unspecified; J96.21 Acute and chronic respiratory failure with hypoxia; R65.10 Systemic inflammatory response syndrome (SIRS) of non-infectious origin without acute organ dysfunction; E44.1 Mild protein-calorie malnutrition; E66.2 Morbid (severe) obesity with alveolar hypoventilation; J44.1 Chronic obstructive pulmonary disease with (acute) exacerbation; E87.2 Acidosis; E78.5 Hyperlipidemia, unspecified; E78.00 Pure hypercholesterolemia, unspecified; D63.8 Anemia in other chronic diseases classified elsewhere; F03.90 Unspecified dementia, unspecified severity, without behavioral disturbance, psychotic disturbance, mood disturbance, and anxiety; F17.210 Nicotine dependence, cigarettes, uncomplicated; I12.9 Hypertensive chronic kidney disease with stage 1 through stage 4 chronic kidney disease, or unspecified chronic kidney disease; N18.3 Chronic kidney disease, stage 3 (moderate); D35.02 Benign neoplasm of left adrenal gland; Z90.721 Acquired absence of ovaries, unilateral; Z68.37 Body mass index [BMI] 37.0-37.9, adult; Z79.52 Long term (current) use of systemic steroids; Z82.49 Family history of ischemic heart disease and other diseases of the circulatory system; Z99.81 Dependence on supplemental oxygen; Z90.49 Acquired absence of other specified parts of digestive tract
CPT/HCPCS: 36415; 36600; 70450; 71010; 74176; 80048; 80053; 81001; 82553; 82805; 83605; 83690; 83880; 84484; 85007; 85027; 87040; 87086; 87186; 93005; 94250; 94640; 94660; 94760; 96361; 96365; 96375; J1650; J1956; J2920; J2930; J3010; J7030; J7620; Q0169; 99285-25